=== PATIENT | female | born 1935 | race Caucasian/White ===

== ENCOUNTER 2021-11-04 10:40 | Day surgery (SDC) | payer MEDICARE ==
[2021-10-30 16:26] LABS: BASOPHILS % (AUTO) 0.6 % (0-1); EOSINOPHILS # (AUTO) 0.1 X10'3 (0-0.9); EOSINOPHILS % (AUTO) 0.9 % (0-6); HEMATOCRIT 36.6 % (35.0-45.0); HEMOGLOBIN 12.1 g/dl (12.0-16.0); LYMPHOCYTES # (AUTO) 1.2 X10'3 (1.1-4.8); LYMPHOCYTES % (AUTO) 19.4 % (21-51); MEAN CORPUSCULAR VOLUME 78.7 FL (78-98); MEAN PLATELET VOLUME 7.6 FL (7.4-10.4); MONOCYTES # (AUTO) 0.5 X10'3 (0-0.9); MONOCYTES % (AUTO) 7.2 % (2-12); NEUTROPHILS # (AUTO) 4.6 X10'3 (1.8-7.7); NEUTROPHILS % (AUTO) 71.9 % (42-75); PLATELET COUNT 242 X10'3 (140-440); RED BLOOD COUNT 4.64 X10'6 (4.20-5.60); RED CELL DISTRIBUTION WIDTH 18.4 % (11.5-14.5); WHITE BLOOD COUNT 6.4 X10'3 (4.5-11.0)
[2021-10-30 16:32] LABS: ALBUMIN 3.3 G/DL (3.4-5.0); ANION GAP 1 (8-16); BLOOD UREA NITROGEN 12 MG/DL (7-18); BUN/CREATININE RATIO 14.8 (6.6-38.0); CHLORIDE 108 MMOL/L (99-107); CREATININE 0.81 MG/DL (0.40-0.90); GLUCOSE 92 MG/DL (70-104); POTASSIUM 3.8 MMOL/L (3.5-5.1); SODIUM 140 MMOL/L (135-145); TOTAL CARBON DIOXIDE 30.6 MMOL/L (24-32); eGFR 67 ML/MIN
[2021-10-30 16:35] LABS: APTT 43 SECONDS (22-32)
[2021-11-04] VITALS (11 sets, daily range): BP systolic 12–175; BP diastolic 57–88
[~2021-11-04] VITALS: Ht 152.4 cm; Wt 49.3 kg
[2021-11-04] MEDS ORDERED: diphenhydrAMINE 25mg capsule PO PRN (11:00)
[2021-11-04] MEDS ORDERED: normal saline 1,000 ML IV SCH (11:00)
[2021-11-04] MEDS ORDERED: TRAZ-251 PO (11:42)
[2021-11-04] MEDS ORDERED: WARF3TAB56 PO (11:42)
[2021-11-04] MEDS ORDERED: DIGO125T PO (11:42)
[2021-11-04] MEDS ORDERED: BISO10TA16 PO (11:42)
[2021-11-04] MEDS ORDERED: BUDE10.2 INH (11:42)
[2021-11-04] MEDS ORDERED: ATOR40TA PO (11:42)
[2021-11-04] MEDS ORDERED: TICA90TA PO (11:42)
[2021-11-04] MEDS ORDERED: SPIR25TA5 PO (11:42)
[2021-11-04] MEDS ORDERED: midazolam 1 mg/ML 2ml injection ONE (13:20)
[2021-11-04] MEDS ORDERED: fentaNYL/PF 50MCG/1 ML 2ML syringe ONE (13:20)
[2021-11-04] MEDS ORDERED: iohexol 350MG/ML 100ml bottle IV ONE (13:20)
[2021-11-04] MEDS ORDERED: nitroGLYCERIN-Tridil 50MG/D5W 0 ML IV ONE (13:20)
[2021-11-04] MEDS ORDERED: LIDOcaine 1% (10mg/ml) 2ml vial ONE (13:48)
[2021-11-04] MEDS ORDERED: heparin 1,000unit/ml 10ml vial 10 ML ONE (13:54)
[2021-11-04] MEDS ORDERED: hydrALAZINE 20mg/ml inj. IV ONE ×2 (14:30→14:53)
[2021-11-04] MEDS ORDERED: protamine sulfate 10mg/ml inj. ONE (15:02)
--- NOTE | 2021-11-04 15:30 | NUR ---
Rec'd report from DIANA Yo @ [id number] groin site CDI w/femstop in place-Rt pedal pulse weak w/palpation-strong doppler-palpated Rt groin pulse Addendum: 11/04/21 at 1844 by Zulay Rodriguez RN Amended: Links added.
[2021-11-04] MEDS ORDERED: HYDROcodone/acetaminophen 10/325mg tab PO ONE (16:35)
[2021-11-04] MEDS ORDERED: proCHLORperazine 10 MG/2 ml inj IV PRN (16:50)
[2021-11-04] MEDS ORDERED: ondansetron/PF 4mg/2ml inj IV PRN (16:50)
== END 2021-11-04 19:53 | disposition home or self-care (01) ==
LOC: SSTAY O 10:40
PROVIDERS: ATTEND Internal Medicine Interventional Cardiology
DX: Z01.810 Encounter for preprocedural cardiovascular examination (principal); I25.10 Atherosclerotic heart disease of native coronary artery without angina pectoris; J44.9 Chronic obstructive pulmonary disease, unspecified; I25.2 Old myocardial infarction; I48.91 Unspecified atrial fibrillation; I11.0 Hypertensive heart disease with heart failure; I50.9 Heart failure, unspecified; F17.210 Nicotine dependence, cigarettes, uncomplicated; Z95.0 Presence of cardiac pacemaker; Z79.899 Other long term (current) drug therapy
CPT/HCPCS: 36415; 80048; 85025; 85610; 85730; 93005; 93458; 93571; 99152; 99153; C1751; C1760; C1769; C1894; J0360; J1644; J2250; J2405; J2720; J3010; J3490; J7030; Q0163; Q9967; A4615; A4620; A6258

== ENCOUNTER 2021-11-09 13:35 | Inpatient (IN) | payer MEDICARE ==
[~2021-11-09] VITALS: Ht 152.4 cm; Wt 49.8 kg
[~2021-11-09 13:35] MED LIST: ATOR40TA PO; BISO10TA16 PO; BUDE10.2 INH; DIGO125T PO; SPIR25TA5 PO; TICA90TA PO; TRAZ-251 PO; WARF3TAB56 PO
[2021-11-09 14:18] LABS: BASOPHILS # (AUTO) 0.1 X10'3 (0-0.2); EOSINOPHILS # (AUTO) 0.1 X10'3 (0-0.9); EOSINOPHILS % (AUTO) 1.1 % (0-6); HEMATOCRIT 34.9 % (35.0-45.0); HEMOGLOBIN 11.3 g/dl (12.0-16.0); LYMPHOCYTES # (AUTO) 1.3 X10'3 (1.1-4.8); LYMPHOCYTES % (AUTO) 20.4 % (21-51); MEAN CORPUSCULAR HEMOGLOBIN 26.1 PG (27.0-31.0); MEAN CORPUSCULAR HGB CONC 32.5 g/dL (33.0-36.5); MEAN CORPUSCULAR VOLUME 80.4 FL (78-98); MEAN PLATELET VOLUME 7.6 FL (7.4-10.4); MONOCYTES # (AUTO) 0.5 X10'3 (0-0.9); NEUTROPHILS # (AUTO) 4.4 X10'3 (1.8-7.7); NEUTROPHILS % (AUTO) 69.5 % (42-75); PLATELET COUNT 247 X10'3 (140-440); RED BLOOD COUNT 4.33 X10'6 (4.20-5.60); RED CELL DISTRIBUTION WIDTH 18.6 % (11.5-14.5); WHITE BLOOD COUNT 6.4 X10'3 (4.5-11.0)
[2021-11-09 14:24] LABS: ALANINE AMINOTRANSFERASE 42 U/L (12-78); ALBUMIN 3.4 G/DL (3.4-5.0); ALKALINE PHOSPHATASE 77 IU/L (46-116); ANION GAP 8 (8-16); ASPARTATE AMINO TRANSFERASE 38 U/L (10-37); BILIRUBIN,TOTAL 0.8 MG/DL (0.1-1.0); BLOOD UREA NITROGEN 11 MG/DL (7-18); BUN/CREATININE RATIO 13.9 (6.6-38.0); CALCIUM 9.3 MG/DL (8.5-10.1); CHLORIDE 109 MMOL/L (99-107); CREATININE 0.79 MG/DL (0.40-0.90); GLUCOSE 107 MG/DL (70-104); POTASSIUM 4.1 MMOL/L (3.5-5.1); SODIUM 145 MMOL/L (135-145); TOTAL CARBON DIOXIDE 28.2 MMOL/L (24-32); TOTAL PROTEIN 6.7 G/DL (6.4-8.2); eGFR 69 ML/MIN
[2021-11-09 14:46] LABS: PLATELET ESTIMATE NORMAL
[2021-11-09 14:47] LABS: ANISOCYTOSIS 2+; POIKILOCYTOSIS 1+; POLYCHROMASIA FEW; TARGET CELLS FEW
[2021-11-09] MEDS ORDERED: furosemide 10 MG/1 ML 10ml inj IV ONE (15:20)
--- NOTE | 2021-11-09 15:20 | NUR ---
ATTEMPTED TO INTERROGATE PACEMAKER X2 WITHOUT SUCCESS. PT HAS [place] [employer] PACEM[facility]ER. CALLED [facility] [phone]. STATES THEY WILL HAVE A SKIN LIFTER BACON CALL BACK FOR SUPPORT
--- NOTE | 2021-11-09 15:38 | NUR ---
PACEMAKER SUCCESSFULLY INTERROGATED AND [employer] SUPERVISOR CAMILA STATES THE REPORT WILL BE FAXED OVER SHORTLY. HER DIRECT NUMBER IS [phone]
[2021-11-09] MEDS ORDERED: ondansetron 4mg rapidly disintigrating tab PO PRN (15:45)
[2021-11-09] MEDS ORDERED: ondansetron/PF 4mg/2ml inj IV PRN (15:45)
[2021-11-09] MEDS ORDERED: PERFLUTREN PROTEIN-A MICROSPHR (Optison) 0.22 MG/ML 3ML VIAL IV ONE (15:45)
[2021-11-09] MEDS ORDERED: POTASSIUM BICARB 20meq eff tab 20 MEQ TABLET.EFF PO PRN (15:45)
[2021-11-09] MEDS ORDERED: magnesium Cl slow-release 64mg tablet PO PRN (15:45)
[2021-11-09] MEDS ORDERED: HYDROcodone/acetaminophen 10/325mg tab PO PRN (15:45)
[2021-11-09] MEDS ORDERED: magnesium 2GM in 50ml NS 50 ML IV PRN (15:45)
[2021-11-09] MEDS ORDERED: magnesium 4gm in 100ml NS 100 ML IV PRN (15:45)
[2021-11-09] MEDS ORDERED: magnesium hydroxide 30ml (MOM) UD suspension PO PRN (15:45)
[2021-11-09] MEDS ORDERED: acetaminophen 650mg rectal suppository RC PRN (15:45)
[2021-11-09] MEDS ORDERED: acetaminophen 325mg tablet PO PRN ×2 (15:45)
[2021-11-09] MEDS ORDERED: bisacodyl 10mg suppository rectal RC PRN (15:45)
[2021-11-09] MEDS ORDERED: mag hydrox/Alum hydrox/simeth 30ml oral suspension PO PRN (15:45)
[2021-11-09] MEDS ORDERED: morphine 2 MG/ML inj. syringe IV PRN ×2 (15:45)
[2021-11-09] MEDS ORDERED: metoclopramide 5 mg/ml inj IV PRN (15:45)
[2021-11-09] MEDS ORDERED: potassium CL 10mEq/100ml bag 100 ML IV PRN (15:45)
[2021-11-09] MEDS ORDERED: FURO-150 PO (15:52)
[2021-11-09] MEDS ORDERED: DIGO250T76 PO (15:52)
[2021-11-09 16:20] LABS: APTT 26 SECONDS (22-32)
[2021-11-09 16:45] VITALS: BP 146/95
[2021-11-09] MEDS: K and/or MAG REPLACEMENT MC SCH (19:18)
[2021-11-09] MEDS ORDERED: enoxaparin 60mg/0.6ml syringe SUBCUT SCH (20:00)
[2021-11-09] MEDS: budesonide 0.5mg/2ml UD nebule IH SCH (21:00)
[2021-11-09] MEDS: albuterol 2.5 MG/3 ML nebule NEB SCH (21:00)
[2021-11-09] MEDS ORDERED: warfarin 5mg tablet PO ONE (21:00)
[2021-11-09] MEDS: ticagrelor 90mg tablet PO SCH (21:08)
[2021-11-09] MEDS: furosemide 40mg/4ml inj IV SCH (21:08)
[2021-11-09] MEDS: atorvastatin 20mg tablet PO SCH (21:08)
[2021-11-09] MEDS: traZODone 50mg tablet PO SCH (21:08)
[2021-11-09] MEDS: docusate sod 100mg capsule PO SCH (21:09)
[2021-11-09] MEDS: HYDROcodone/acetaminophen 5mg/325mg tablet PO PRN (21:29)
[2021-11-09 23:13] VITALS: BP 144/79
--- NOTE | 2021-11-09 23:51 | NUR ---
Paged Dr. Keene d/t patient c/o cramping in feet/legs. Orders received.
[2021-11-10] VITALS (8 sets, daily range): BP systolic 96–139; BP diastolic 64–84
[2021-11-10] MEDS: cyclobenzaprine 10mg tablet PO PRN ×3 (00:29→17:54)
[2021-11-10] MEDS: albuterol 2.5 MG/3 ML nebule NEB SCH ×4 (02:59→20:59)
[2021-11-10 06:41] LABS: BASOPHILS # (AUTO) 0.1 X10'3 (0-0.2); EOSINOPHILS # (AUTO) 0.1 X10'3 (0-0.9); EOSINOPHILS % (AUTO) 2.7 % (0-6); HEMATOCRIT 35.6 % (35.0-45.0); HEMOGLOBIN 11.4 g/dl (12.0-16.0); LYMPHOCYTES # (AUTO) 1.6 X10'3 (1.1-4.8); LYMPHOCYTES % (AUTO) 28.9 % (21-51); MEAN CORPUSCULAR HEMOGLOBIN 25.5 PG (27.0-31.0); MEAN CORPUSCULAR HGB CONC 32.1 g/dL (33.0-36.5); MEAN CORPUSCULAR VOLUME 79.4 FL (78-98); MEAN PLATELET VOLUME 7.8 FL (7.4-10.4); MONOCYTES # (AUTO) 0.5 X10'3 (0-0.9); NEUTROPHILS # (AUTO) 3.1 X10'3 (1.8-7.7); NEUTROPHILS % (AUTO) 57.4 % (42-75); PLATELET COUNT 250 X10'3 (140-440); RED BLOOD COUNT 4.48 X10'6 (4.20-5.60); RED CELL DISTRIBUTION WIDTH 19.1 % (11.5-14.5); WHITE BLOOD COUNT 5.4 X10'3 (4.5-11.0)
[2021-11-10 07:15] LABS: ALANINE AMINOTRANSFERASE 36 U/L (12-78); ALBUMIN 3.4 G/DL (3.4-5.0); ALKALINE PHOSPHATASE 71 IU/L (46-116); ANION GAP 12 (8-16); ASPARTATE AMINO TRANSFERASE 30 U/L (10-37); BILIRUBIN,TOTAL 0.9 MG/DL (0.1-1.0); BLOOD UREA NITROGEN 11 MG/DL (7-18); BUN/CREATININE RATIO 13.4 (6.6-38.0); CHLORIDE 103 MMOL/L (99-107); CHOL/HDL RATIO 2.3 (0.00-4.99); CHOLESTEROL 132 MG/DL (0-200); CREATININE 0.82 MG/DL (0.40-0.90); GLUCOSE 91 MG/DL (70-104); HDL CHOLESTEROL 57 MG/DL (35-60); LDL CHOLESTEROL 54 MG/DL (50-100); PHOSPHORUS 3.8 MG/DL (2.3-4.5); POTASSIUM 3.2 MMOL/L (3.5-5.1); SODIUM 144 MMOL/L (135-145); TOTAL CARBON DIOXIDE 29.1 MMOL/L (24-32); TOTAL PROTEIN 6.7 G/DL (6.4-8.2); TRIGLYCERIDES 118 MG/DL (20-135); eGFR 66 ML/MIN
[2021-11-10 07:39] LABS: APTT 31 SECONDS (22-32)
[2021-11-10] MEDS: budesonide 0.5mg/2ml UD nebule IH SCH ×2 (07:59→20:59)
[2021-11-10] MEDS ORDERED: spironolactone 25 MG tablet PO SCH ×2 (08:00→08:51)
[2021-11-10] MEDS ORDERED: bisoprolol 5mg tablet PO SCH (08:00)
[2021-11-10] MEDS: docusate sod 100mg capsule PO SCH ×2 (08:00→20:49)
[2021-11-10] MEDS: K and/or MAG REPLACEMENT MC SCH ×2 (08:00→20:39)
[2021-11-10] MEDS ORDERED: atenolol 50mg tablet PO SCH (08:54)
[2021-11-10] MEDS: atenolol 50mg tablet PO SCH ×2 (09:55→10:15)
[2021-11-10] MEDS: spironolactone 25 MG tablet PO SCH (10:05)
[2021-11-10] MEDS: ticagrelor 90mg tablet PO SCH ×2 (10:07→20:49)
[2021-11-10] MEDS: POTASSIUM BICARB 20meq eff tab 20 MEQ TABLET.EFF PO PRN ×3 (10:07→20:56)
[2021-11-10] MEDS: furosemide 40mg/4ml inj IV SCH ×2 (10:07→20:51)
[2021-11-10] MEDS: digoxin 250mcg (0.25mg) tablet PO SCH (10:08)
[2021-11-10] MEDS: HYDROcodone/acetaminophen 5mg/325mg tablet PO PRN ×2 (10:13→17:54)
--- NOTE | 2021-11-10 10:15 | NUR ---
Sebring would not scan. Charge nurse (Gavi ORTIZ) Notified. She was able to confirm medication would not scan. Med returned, another norco pulled, still would not scan. Administered without scanning, Charge nurse as witness. Pharmacy notified to fix issue.
[2021-11-10] MEDS ORDERED: enoxaparin 50mg/0.5ml (from 3ml vial) syringe SUBCUT SCH (10:41)
[2021-11-10] MEDS: sacubitril/valsartan 24mg-26mg tablet PO SCH ×2 (11:25→20:49)
[2021-11-10] MEDS: predniSONE 20 mg tablet PO SCH (11:26)
--- NOTE | 2021-11-10 15:22 | NUR ---
PAGER ID: [phone] MESSAGE: [id number] Sonja Theodore: Wanting update on her test results. I see there is a report for echo, just not in [facility] spot. Its at top right "R" on echo images file. Glenna [facility] [id number]
--- NOTE | 2021-11-10 17:26 | NUR ---
PAGER ID: [phone] MESSAGE: [id number] Sonja Theodore: Patient wants to leave. Daughter is asking how to get her out of here tonight. They would like to know what the plan is for her. Can you call me? Thanks! Glenna [facility] [id number]
[2021-11-10] MEDS: nicotine 14mg patch - 24hr TD SCH (17:54)
[2021-11-10] MEDS: atorvastatin 20mg tablet PO SCH (20:49)
[2021-11-10] MEDS: traZODone 50mg tablet PO SCH (20:50)
[2021-11-10] MEDS ORDERED: warfarin 3mg tablet PO ONE (21:00)
[2021-11-10] MEDS: enoxaparin 60mg/0.6ml syringe SUBCUT SCH (21:45)
[2021-11-11 02:00] VITALS: BP 93/57
[2021-11-11] MEDS: albuterol 2.5 MG/3 ML nebule NEB SCH ×2 (03:00→07:52)
[2021-11-11] MEDS: HYDROcodone/acetaminophen 5mg/325mg tablet PO PRN (05:43)
[2021-11-11] MEDS: cyclobenzaprine 10mg tablet PO PRN (05:43)
[2021-11-11 06:01] LABS: BASOPHILS % (AUTO) 0.1 % (0-1); EOSINOPHILS % (AUTO) 0 % (0-6); HEMATOCRIT 36.4 % (35.0-45.0); LYMPHOCYTES # (AUTO) 1.2 X10'3 (1.1-4.8); MEAN CORPUSCULAR HEMOGLOBIN 26.3 PG (27.0-31.0); MEAN CORPUSCULAR VOLUME 79.7 FL (78-98); MEAN PLATELET VOLUME 7.8 FL (7.4-10.4); MONOCYTES # (AUTO) 0.6 X10'3 (0-0.9); MONOCYTES % (AUTO) 6.6 % (2-12); NEUTROPHILS # (AUTO) 6.7 X10'3 (1.8-7.7); NEUTROPHILS % (AUTO) 79.3 % (42-75); PLATELET COUNT 281 X10'3 (140-440); RED BLOOD COUNT 4.56 X10'6 (4.20-5.60); RED CELL DISTRIBUTION WIDTH 18.6 % (11.5-14.5); WHITE BLOOD COUNT 8.5 X10'3 (4.5-11.0)
[2021-11-11 06:07] LABS: APTT 31 SECONDS (22-32)
[2021-11-11 06:24] LABS: ALANINE AMINOTRANSFERASE 33 U/L (12-78); ALBUMIN 3.6 G/DL (3.4-5.0); ALKALINE PHOSPHATASE 73 IU/L (46-116); ANION GAP 10 (8-16); ASPARTATE AMINO TRANSFERASE 21 U/L (10-37); BILIRUBIN,TOTAL 0.8 MG/DL (0.1-1.0); BLOOD UREA NITROGEN 18 MG/DL (7-18); BUN/CREATININE RATIO 17.5 (6.6-38.0); CALCIUM 9.2 MG/DL (8.5-10.1); CHLORIDE 99 MMOL/L (99-107); CREATININE 1.03 MG/DL (0.40-0.90); GLUCOSE 114 MG/DL (70-104); MAGNESIUM 2.2 MG/DL (1.5-2.4); POTASSIUM 3.7 MMOL/L (3.5-5.1); SODIUM 140 MMOL/L (135-145); TOTAL CARBON DIOXIDE 30.9 MMOL/L (24-32); TOTAL PROTEIN 7.2 G/DL (6.4-8.2); eGFR 51 ML/MIN
[2021-11-11 06:30] VITALS: BP 123/70
--- NOTE | 2021-11-11 06:30 | NUR ---
Patient in room PCU 3027. I have received report from Benjamin ORTIZ and had the opportunity to ask questions and assume patient care.
[2021-11-11] MEDS: budesonide 0.5mg/2ml UD nebule IH SCH (07:52)
[2021-11-11] MEDS: K and/or MAG REPLACEMENT MC SCH (08:00)
[2021-11-11] MEDS: docusate sod 100mg capsule PO SCH (08:00)
[2021-11-11] MEDS: furosemide 40mg/4ml inj IV SCH (09:02)
[2021-11-11] MEDS: spironolactone 25 MG tablet PO SCH (09:03)
[2021-11-11] MEDS: sacubitril/valsartan 24mg-26mg tablet PO SCH (09:04)
[2021-11-11] MEDS: enoxaparin 60mg/0.6ml syringe SUBCUT SCH (09:04)
[2021-11-11] MEDS: predniSONE 20 mg tablet PO SCH (09:04)
[2021-11-11] MEDS: ticagrelor 90mg tablet PO SCH (09:04)
[2021-11-11] MEDS: digoxin 250mcg (0.25mg) tablet PO SCH (09:05)
[2021-11-11] MEDS: atenolol 50mg tablet PO SCH (09:05)
[2021-11-11] MEDS: nicotine 14mg patch - 24hr TD SCH (09:06)
[2021-11-11] MEDS ORDERED: PRED10TA PO (09:51)
[2021-11-11] MEDS ORDERED: SACU1TAB PO (09:51)
[2021-11-11] MEDS ORDERED: FURO-150 PO (09:51)
[2021-11-11] MEDS ORDERED: NICO-631 TD (09:51)
[2021-11-11 11:00] VITALS: BP 102/65
[2021-11-11] MEDS ORDERED: enoxaparin 50mg/0.5ml (from 3ml vial) syringe SUBCUT SCH (11:48)
--- NOTE | 2021-11-11 14:17 | NUR ---
Patient discharged in stable condition. All discharge instructions reviewed with no further questions. States that she will make her Dr Appointments as her primary care is a walk in clinic and she sees Dr August as well. Patient taken to personal vehicle via wheelchair, with all belongings, including cane.
[2021-11-11] MEDS ORDERED: warfarin 3mg tablet PO ONE (21:00)
== END 2021-11-11 14:10 | disposition home or self-care (01) | DRG 190 ==
LOC: ER 13:36 → ED HOLD 15:46 → PCU 3S 16:21
PROVIDERS: ADMIT Family Medicine; ATTEND Family Medicine
DX: J44.1 Chronic obstructive pulmonary disease with (acute) exacerbation (principal); I50.43 Acute on chronic combined systolic (congestive) and diastolic (congestive) heart failure; Q21.1 Atrial septal defect; I11.0 Hypertensive heart disease with heart failure; E78.5 Hyperlipidemia, unspecified; F17.210 Nicotine dependence, cigarettes, uncomplicated; I48.0 Paroxysmal atrial fibrillation; I25.10 Atherosclerotic heart disease of native coronary artery without angina pectoris; I49.5 Sick sinus syndrome; R25.2 Cramp and spasm; R54 Age-related physical debility; F32.A Depression, unspecified; Z95.0 Presence of cardiac pacemaker; I25.2 Old myocardial infarction; Z79.01 Long term (current) use of anticoagulants; Z79.899 Other long term (current) drug therapy; Z86.16 Personal history of COVID-19; Z86.73 Personal history of transient ischemic attack (TIA), and cerebral infarction without residual deficits; Z90.711 Acquired absence of uterus with remaining cervical stump; Z88.8 Allergy status to other drugs, medicaments and biological substances; Z93.3 Colostomy status; Z71.6 Tobacco abuse counseling; Z95.5 Presence of coronary angioplasty implant and graft; Z79.02 Long term (current) use of antithrombotics/antiplatelets
CPT/HCPCS: 36415; 71045; 73030; 80053; 80061; 80162; 82948; 83735; 83880; 84100; 84443; 84484; 85008; 85025; 85610; 85730; 87081; 93005; 93306; 94640; 94760; 96374; 99285; A6449; G0378; J1650; J1940; J7512

== ENCOUNTER 2021-11-12 02:08 | Emergency (ER) | payer MEDICARE ==
[~2021-11-12] VITALS: Ht 152.4 cm; Wt 49.0 kg
[~2021-11-12 02:08] MED LIST changes: -DIGO125T PO; +DIGO250T76 PO; +FURO-150 PO; +NICO-631 TD; +PRED10TA PO; +SACU1TAB PO
[2021-11-12 03:53] LABS: BASOPHILS % (AUTO) 0.2 % (0-1); EOSINOPHILS % (AUTO) 0 % (0-6); HEMATOCRIT 39.6 % (35.0-45.0); HEMOGLOBIN 12.8 g/dl (12.0-16.0); LYMPHOCYTES # (AUTO) 1.3 X10'3 (1.1-4.8); LYMPHOCYTES % (AUTO) 12.5 % (21-51); MEAN CORPUSCULAR HEMOGLOBIN 25.7 PG (27.0-31.0); MEAN CORPUSCULAR HGB CONC 32.4 g/dL (33.0-36.5); MEAN CORPUSCULAR VOLUME 79.3 FL (78-98); MEAN PLATELET VOLUME 7.8 FL (7.4-10.4); MONOCYTES # (AUTO) 0.7 X10'3 (0-0.9); MONOCYTES % (AUTO) 6.6 % (2-12); NEUTROPHILS # (AUTO) 8.7 X10'3 (1.8-7.7); NEUTROPHILS % (AUTO) 80.7 % (42-75); PLATELET COUNT 328 X10'3 (140-440); RED BLOOD COUNT 4.99 X10'6 (4.20-5.60); RED CELL DISTRIBUTION WIDTH 18.7 % (11.5-14.5); WHITE BLOOD COUNT 10.7 X10'3 (4.5-11.0)
[2021-11-12 04:02] LABS: ALANINE AMINOTRANSFERASE 34 U/L (12-78); ALBUMIN/GLOBULIN RATIO 1.1 (1.1-1.5); ALKALINE PHOSPHATASE 73 IU/L (46-116); ANION GAP 9 (8-16); ASPARTATE AMINO TRANSFERASE 21 U/L (10-37); BILIRUBIN,TOTAL 0.9 MG/DL (0.1-1.0); BLOOD UREA NITROGEN 28 MG/DL (7-18); BUN/CREATININE RATIO 25.9 (6.6-38.0); CALCIUM 9.3 MG/DL (8.5-10.1); CHLORIDE 103 MMOL/L (99-107); CREATININE 1.08 MG/DL (0.40-0.90); GLUCOSE 116 MG/DL (70-104); POTASSIUM 4.1 MMOL/L (3.5-5.1); SODIUM 143 MMOL/L (135-145); TOTAL CARBON DIOXIDE 30.7 MMOL/L (24-32); TOTAL PROTEIN 7.7 G/DL (6.4-8.2); eGFR 48 ML/MIN
--- NOTE | 2021-11-12 04:17 | NUR ---
CALLED [facility], ED TO ED, ACCEPTED @[phone]. CALLED [facility] FOR TRANSPORT
[2021-11-12 04:26] LABS: ANISOCYTOSIS 2+; MICROCYTOSIS 1+; PLATELET ESTIMATE NORMAL
[2021-11-12 04:43] VITALS: BP 118/75
== END 2021-11-12 04:46 | disposition short-term general hospital (02) ==
LOC: ER 02:09
DX: S06.6X9A Traumatic subarachnoid hemorrhage with loss of consciousness of unspecified duration, initial encounter (principal); Z20.822 Contact with and (suspected) exposure to COVID-19; R51.9 Headache, unspecified; I48.91 Unspecified atrial fibrillation; I25.10 Atherosclerotic heart disease of native coronary artery without angina pectoris; J44.9 Chronic obstructive pulmonary disease, unspecified; Z95.0 Presence of cardiac pacemaker; Z98.890 Other specified postprocedural states; Z88.8 Allergy status to other drugs, medicaments and biological substances; Z79.899 Other long term (current) drug therapy; X58.XXXA Exposure to other specified factors, initial encounter; Y93.89 Activity, other specified; Y92.89 Other specified places as the place of occurrence of the external cause; Y99.8 Other external cause status
CPT/HCPCS: 36415; 70450; 80053; 85008; 85025; 85610; 87635; 99285; C9803

== ENCOUNTER 2021-11-28 14:26 | Emergency (ER) | payer MEDICARE ==
[~2021-11-28] VITALS: Ht 152.4 cm; Wt 47.7 kg
[2021-11-28 16:45] LABS: BASOPHILS # (AUTO) 0.1 X10'3 (0-0.2); BASOPHILS % (AUTO) 1.1 % (0-1); EOSINOPHILS # (AUTO) 0.1 X10'3 (0-0.9); EOSINOPHILS % (AUTO) 0.9 % (0-6); HEMATOCRIT 41.4 % (35.0-45.0); HEMOGLOBIN 13.6 g/dl (12.0-16.0); LYMPHOCYTES # (AUTO) 1.9 X10'3 (1.1-4.8); LYMPHOCYTES % (AUTO) 21.8 % (21-51); MEAN CORPUSCULAR HEMOGLOBIN 26.7 PG (27.0-31.0); MEAN CORPUSCULAR HGB CONC 32.9 g/dL (33.0-36.5); MEAN CORPUSCULAR VOLUME 81.3 FL (78-98); MEAN PLATELET VOLUME 7.9 FL (7.4-10.4); MONOCYTES # (AUTO) 0.6 X10'3 (0-0.9); MONOCYTES % (AUTO) 6.7 % (2-12); NEUTROPHILS # (AUTO) 5.9 X10'3 (1.8-7.7); NEUTROPHILS % (AUTO) 69.5 % (42-75); PLATELET COUNT 253 X10'3 (140-440); RED BLOOD COUNT 5.09 X10'6 (4.20-5.60); RED CELL DISTRIBUTION WIDTH 18.3 % (11.5-14.5); WHITE BLOOD COUNT 8.5 X10'3 (4.5-11.0)
[2021-11-28 17:01] LABS: ALANINE AMINOTRANSFERASE 20 U/L (12-78); ALBUMIN 3.8 G/DL (3.4-5.0); ALKALINE PHOSPHATASE 102 IU/L (46-116); ANION GAP 10 (8-16); ASPARTATE AMINO TRANSFERASE 21 U/L (10-37); BILIRUBIN,TOTAL 1.2 MG/DL (0.1-1.0); BLOOD UREA NITROGEN 23 MG/DL (7-18); BUN/CREATININE RATIO 18.7 (6.6-38.0); CALCIUM 9.4 MG/DL (8.5-10.1); CHLORIDE 104 MMOL/L (99-107); CREATININE 1.23 MG/DL (0.40-0.90); GLUCOSE 110 MG/DL (70-104); MAGNESIUM 2.4 MG/DL (1.5-2.4); SODIUM 142 MMOL/L (135-145); TOTAL CARBON DIOXIDE 27.6 MMOL/L (24-32); TOTAL PROTEIN 7.8 G/DL (6.4-8.2); eGFR 42 ML/MIN
[2021-11-28 19:21] VITALS: BP 97/54
== END 2021-11-28 20:16 | disposition left against medical advice (07) ==
LOC: ER 14:27
DX: R03.1 Nonspecific low blood-pressure reading (principal); Z53.21 Procedure and treatment not carried out due to patient leaving prior to being seen by health care provider
CPT/HCPCS: 36415; 71045; 80053; 83605; 83735; 84145; 85025; 87040; 93005

== ENCOUNTER 2022-03-13 08:31 | Outpatient (CLI) | payer MEDICARE ==
[2022-03-11 14:41] LABS: ALBUMIN 3.3 G/DL (3.4-5.0); ANION GAP 10 (8-16); BLOOD UREA NITROGEN 19 MG/DL (7-18); BUN/CREATININE RATIO 22.9 (6.6-38.0); CALCIUM 9.2 MG/DL (8.5-10.1); CHLORIDE 104 MMOL/L (99-107); CREATININE 0.83 MG/DL (0.40-0.90); GLUCOSE 128 MG/DL (70-104); SODIUM 142 MMOL/L (135-145); TOTAL CARBON DIOXIDE 27.7 MMOL/L (24-32); eGFR 65 ML/MIN
[~2022-03-13 08:31] MED LIST changes: +ALBU8.5H17 INH; -DIGO250T76 PO; -FURO-150 PO; +FURO20TA4 PO; +HYDR-3965 PO; -NICO-631 TD; +NITR0.4T48 SL; -PRED10TA PO; -SACU1TAB PO; -SPIR25TA5 PO; -TICA90TA PO; -TRAZ-251 PO; +WARF4TAB69 PO
[2022-03-13] MEDS ORDERED: iohexol 350MG/ML 100ml bottle IV ONE (08:41)
== END 2022-03-13 23:59 | disposition home or self-care (01) ==
LOC: RAD 08:31
PROVIDERS: ATTEND Internal Medicine Cardiovascular Disease
DX: J43.9 Emphysema, unspecified (principal); I48.0 Paroxysmal atrial fibrillation; I51.7 Cardiomegaly; I70.0 Atherosclerosis of aorta; I25.10 Atherosclerotic heart disease of native coronary artery without angina pectoris; Q25.46 Tortuous aortic arch
CPT/HCPCS: 36415; 75574; 80048; J3490; Q9967

== ENCOUNTER 2023-06-01 07:47 | Inpatient (IN) | payer MEDICARE ==
[~2023-06-01] VITALS: Ht 152.4 cm; Wt 49.0 kg
[~2023-06-01 07:47] MED LIST changes: -HYDR-3965 PO
[2023-06-01] MEDS ORDERED: normal saline 1000ml 1,000 ML IV ONE (09:15)
[2023-06-01 09:54] LABS: BASOPHILS % (AUTO) 0.3 % (0-1); EOSINOPHILS % (AUTO) 0.1 % (0-6); HEMATOCRIT 39.5 % (35.0-45.0); LYMPHOCYTES # (AUTO) 0.8 X10'3 (1.1-4.8); LYMPHOCYTES % (AUTO) 6.2 % (21-51); MEAN CORPUSCULAR HEMOGLOBIN 30.5 PG (27.0-31.0); MEAN CORPUSCULAR VOLUME 92.4 FL (78-98); MEAN PLATELET VOLUME 7.9 FL (7.4-10.4); MONOCYTES # (AUTO) 0.8 X10'3 (0-0.9); MONOCYTES % (AUTO) 6.4 % (2-12); NEUTROPHILS # (AUTO) 11.4 X10'3 (1.8-7.7); PLATELET COUNT 316 X10'3 (140-440); RED BLOOD COUNT 4.27 X10'6 (4.20-5.60); RED CELL DISTRIBUTION WIDTH 14.6 % (11.5-14.5); WHITE BLOOD COUNT 13.1 X10'3 (4.5-11.0)
[2023-06-01 09:55] LABS: INR 1.1 INR; PROTHROMBIN TIME 11.3 SECONDS (9.0-12.0)
[2023-06-01 09:58] LABS: ALANINE AMINOTRANSFERASE 26 U/L (12-78); ALBUMIN 1.8 G/DL (3.4-5.0); ALBUMIN/GLOBULIN RATIO 0.4 (1.1-1.5); ALKALINE PHOSPHATASE 94 IU/L (46-116); ANION GAP 6 (8-16); ASPARTATE AMINO TRANSFERASE 22 U/L (10-37); BILIRUBIN,TOTAL 1.4 MG/DL (0.1-1.0); BLOOD UREA NITROGEN 15 MG/DL (7-18); BUN/CREATININE RATIO 17.9 (10.0-20.0); CALCIUM 8.8 MG/DL (8.5-10.1); CHLORIDE 102 MMOL/L (99-107); CREATININE 0.84 MG/DL (0.40-0.90); GLUCOSE 99 MG/DL (70-104); SODIUM 136 MMOL/L (135-145); TOTAL CARBON DIOXIDE 27.6 MMOL/L (24-32); TOTAL PROTEIN 6.8 G/DL (6.4-8.2); eCRCL 35 ML/MIN; eGFR 64 ML/MIN
[2023-06-01 10:00] LABS: APTT 27 SECONDS (22-32)
[2023-06-01] MEDS ORDERED: diltiazem 5mg/ml 5ml inj. IV ONE (10:00)
[2023-06-01 10:05] LABS: PRO BRAIN NATRIURETIC PEPTIDE 1906 PG/ML (0-450)
[2023-06-01] MEDS ORDERED: magnesium Cl slow-release 64mg tablet PO PRN (10:50)
[2023-06-01] MEDS ORDERED: potassium Cl 40MEQ/1/2NS 520ml 520 ML IV PRN (10:50)
[2023-06-01] MEDS ORDERED: acetaminophen 325mg tablet PO PRN ×2 (10:50)
[2023-06-01] MEDS ORDERED: HYDROcodone/acetaminophen 5mg/325mg tablet PO PRN (10:50)
[2023-06-01] MEDS ORDERED: potassium Cl 20 mEq SR tablet PO PRN ×2 (10:50)
[2023-06-01] MEDS ORDERED: digoxin 250mcg/ml 2ml ampule IV ONE (10:50)
[2023-06-01] MEDS ORDERED: ondansetron/PF 4mg/2ml inj IV PRN (10:50)
[2023-06-01] MEDS ORDERED: magnesium 2GM in 50ml NS 50 ML IV PRN (10:50)
[2023-06-01] MEDS ORDERED: morphine 2 MG/ML inj. syringe IV PRN ×2 (10:50)
[2023-06-01] MEDS ORDERED: magnesium 4gm in 100ml NS 100 ML IV PRN (10:50)
[2023-06-01 12:45] VITALS: BP 91/58; PULSE 101; RESP 20; TEMP 97.5; O2SAT 98
[2023-06-01] MEDS: normal saline 1000ml 1,000 ML IV SCH (13:50)
[2023-06-01] MEDS ORDERED: carVEDilol 3.125mg tablet PO SCH (14:00)
[2023-06-01] MEDS: nystatin 500,000 unit/5ML UD oral suspension PO SCH ×2 (14:52→20:03)
[2023-06-01 15:00] VITALS: BP 104/60; RESP 20
[2023-06-01] MEDS ORDERED: CLOP75TA34 PO (16:18)
[2023-06-01] MEDS ORDERED: OXYC-658 PO (16:18)
[2023-06-01] MEDS ORDERED: SPIR25TA5 PO (16:18)
[2023-06-01] MEDS ORDERED: MELA5TAB12 PO (16:18)
[2023-06-01 18:00] VITALS: BP 106/67; PULSE 110; RESP 16; TEMP 97.7
[2023-06-01 20:00] VITALS: RESP 14
[2023-06-01] MEDS: atorvastatin 20mg tablet PO SCH (20:02)
[2023-06-01] MEDS: enoxaparin 40mg/0.4ml syringe SQ SCH (20:03)
[2023-06-01] MEDS ORDERED: temazepam 15mg capsule PO PRN (21:00)
[2023-06-01 22:00] VITALS: BP 94/58; PULSE 93; RESP 14; TEMP 97.4
[2023-06-02 02:00] VITALS: BP 101/55; PULSE 96; RESP 14; TEMP 97.8
[2023-06-02 06:30] VITALS: BP 93/71; PULSE 109; RESP 19; TEMP 98.8; O2SAT 94
[2023-06-02] MEDS: nystatin 500,000 unit/5ML UD oral suspension PO SCH ×3 (08:10→20:05)
[2023-06-02] MEDS: metoprolol succinate 25mg (24-HOUR) SR. Tablet PO SCH (08:10)
[2023-06-02] MEDS: HYDROcodone/acetaminophen 10/325mg tab PO PRN ×2 (08:15→20:00)
[2023-06-02 08:24] LABS: BASOPHILS % (AUTO) 0.4 % (0-1); EOSINOPHILS % (AUTO) 0.3 % (0-6); HEMATOCRIT 38.7 % (35.0-45.0); HEMOGLOBIN 12.9 g/dl (12.0-16.0); LYMPHOCYTES # (AUTO) 0.8 X10'3 (1.1-4.8); MEAN CORPUSCULAR HEMOGLOBIN 30.6 PG (27.0-31.0); MEAN CORPUSCULAR HGB CONC 33.2 g/dL (33.0-36.5); MEAN PLATELET VOLUME 7.8 FL (7.4-10.4); MONOCYTES # (AUTO) 0.6 X10'3 (0-0.9); MONOCYTES % (AUTO) 6.6 % (2-12); NEUTROPHILS % (AUTO) 84.7 % (42-75); PLATELET COUNT 304 X10'3 (140-440); RED BLOOD COUNT 4.21 X10'6 (4.20-5.60); RED CELL DISTRIBUTION WIDTH 14.3 % (11.5-14.5); WHITE BLOOD COUNT 9.4 X10'3 (4.5-11.0)
[2023-06-02 08:29] LABS: ALANINE AMINOTRANSFERASE 22 U/L (12-78); ALBUMIN 1.7 G/DL (3.4-5.0); ALBUMIN/GLOBULIN RATIO 0.3 (1.1-1.5); ALKALINE PHOSPHATASE 94 IU/L (46-116); ANION GAP 9 (8-16); ASPARTATE AMINO TRANSFERASE 27 U/L (10-37); BILIRUBIN,TOTAL 1.3 MG/DL (0.1-1.0); BLOOD UREA NITROGEN 12 MG/DL (7-18); BUN/CREATININE RATIO 16.4 (10.0-20.0); CALCIUM 8.5 MG/DL (8.5-10.1); CHLORIDE 104 MMOL/L (99-107); CREATININE 0.73 MG/DL (0.40-0.90); GLUCOSE 71 MG/DL (70-104); POTASSIUM 4.1 MMOL/L (3.5-5.1); SODIUM 138 MMOL/L (135-145); TOTAL CARBON DIOXIDE 25.1 MMOL/L (24-32); TOTAL PROTEIN 6.8 G/DL (6.4-8.2); eCRCL 40 ML/MIN; eGFR 76 ML/MIN
[2023-06-02 18:00] VITALS: BP 118/66; PULSE 85; RESP 14; TEMP 97; O2SAT 90
[2023-06-02 19:00] VITALS: RESP 14; O2SAT 90
[2023-06-02] MEDS: enoxaparin 40mg/0.4ml syringe SQ SCH (20:00)
[2023-06-02] MEDS: atorvastatin 20mg tablet PO SCH (20:01)
[2023-06-03 06:45] VITALS: BP 101/61; PULSE 91; RESP 20; TEMP 97.4; O2SAT 95
[2023-06-03] MEDS: nystatin 500,000 unit/5ML UD oral suspension PO SCH ×2 (07:46→12:38)
[2023-06-03] MEDS: metoprolol succinate 25mg (24-HOUR) SR. Tablet PO SCH (07:46)
[2023-06-03 08:43] LABS: BASOPHILS # (AUTO) 0.1 X10'3 (0-0.2); BASOPHILS % (AUTO) 0.8 % (0-1); EOSINOPHILS % (AUTO) 0.4 % (0-6); HEMOGLOBIN 12.3 g/dl (12.0-16.0); LYMPHOCYTES # (AUTO) 1.1 X10'3 (1.1-4.8); LYMPHOCYTES % (AUTO) 14.9 % (21-51); MEAN CORPUSCULAR HEMOGLOBIN 30.8 PG (27.0-31.0); MEAN CORPUSCULAR HGB CONC 33.3 g/dL (33.0-36.5); MEAN CORPUSCULAR VOLUME 92.4 FL (78-98); MONOCYTES # (AUTO) 0.8 X10'3 (0-0.9); MONOCYTES % (AUTO) 10.3 % (2-12); NEUTROPHILS # (AUTO) 5.4 X10'3 (1.8-7.7); NEUTROPHILS % (AUTO) 73.6 % (42-75); PLATELET COUNT 302 X10'3 (140-440); RED BLOOD COUNT 4.01 X10'6 (4.20-5.60); RED CELL DISTRIBUTION WIDTH 14.6 % (11.5-14.5); WHITE BLOOD COUNT 7.4 X10'3 (4.5-11.0)
[2023-06-03 08:48] LABS: ALANINE AMINOTRANSFERASE 19 U/L (12-78); ALBUMIN 1.6 G/DL (3.4-5.0); ALBUMIN/GLOBULIN RATIO 0.3 (1.1-1.5); ALKALINE PHOSPHATASE 91 IU/L (46-116); ANION GAP 3 (8-16); ASPARTATE AMINO TRANSFERASE 24 U/L (10-37); BILIRUBIN,TOTAL 0.8 MG/DL (0.1-1.0); BLOOD UREA NITROGEN 12 MG/DL (7-18); BUN/CREATININE RATIO 13.3 (10.0-20.0); CALCIUM 8.7 MG/DL (8.5-10.1); CHLORIDE 106 MMOL/L (99-107); GLUCOSE 90 MG/DL (70-104); SODIUM 140 MMOL/L (135-145); TOTAL CARBON DIOXIDE 30.7 MMOL/L (24-32); TOTAL PROTEIN 6.6 G/DL (6.4-8.2); eCRCL 33 ML/MIN; eGFR 60 ML/MIN
[2023-06-03] MEDS: normal saline 1000ml 1,000 ML IV SCH (10:50)
[2023-06-03] MEDS ORDERED: METO-395 PO (12:24)
[2023-06-03] MEDS ORDERED: PANT-47 PO (12:31)
[2023-06-03] MEDS ORDERED: NYST1000 PO (12:31)
== END 2023-06-03 15:26 | disposition home health service (06) | DRG 543 ==
LOC: ER 07:47 → ED HOLD 10:58 → PCU 3S 12:46
PROVIDERS: ADMIT Internal Medicine; ATTEND Internal Medicine
DX: M48.56XA Collapsed vertebra, not elsewhere classified, lumbar region, initial encounter for fracture (principal); B37.0 Candidal stomatitis; I50.22 Chronic systolic (congestive) heart failure; E44.1 Mild protein-calorie malnutrition; I48.0 Paroxysmal atrial fibrillation; I95.9 Hypotension, unspecified; J43.9 Emphysema, unspecified; E78.5 Hyperlipidemia, unspecified; D72.829 Elevated white blood cell count, unspecified; F43.9 Reaction to severe stress, unspecified; I11.0 Hypertensive heart disease with heart failure; R91.8 Other nonspecific abnormal finding of lung field; I25.10 Atherosclerotic heart disease of native coronary artery without angina pectoris; I25.2 Old myocardial infarction; Z95.0 Presence of cardiac pacemaker; Z95.5 Presence of coronary angioplasty implant and graft; Z88.6 Allergy status to analgesic agent; Z88.8 Allergy status to other drugs, medicaments and biological substances; Z87.891 Personal history of nicotine dependence; R62.7 Adult failure to thrive; Z68.21 Body mass index [BMI] 21.0-21.9, adult
CPT/HCPCS: 36415; 71045; 80053; 83735; 83880; 84145; 84484; 85025; 85610; 85730; 87081; 92508; 92616; 93005; 97110; 97161; 97530; 99285; G0378; J1160; J1650; J2270; J3490; J7030

== ENCOUNTER 2023-07-02 11:28 | Emergency (ER) | payer MEDICARE ==
[~2023-07-02] VITALS: Ht 152.4 cm; Wt 50.0 kg
[~2023-07-02 11:28] MED LIST changes: -BISO10TA16 PO; +CLOP75TA34 PO; -FURO20TA4 PO; +MELA5TAB12 PO; +METO-395 PO; +OXYC-658 PO; +PANT-47 PO; -WARF3TAB56 PO; -WARF4TAB69 PO
[2023-07-02 11:30] VITALS: TEMP 98.2
[2023-07-02 12:30] LABS: BASOPHILS # (AUTO) 0.1 X10'3 (0-0.2); BASOPHILS % (AUTO) 1.7 % (0-1); EOSINOPHILS % (AUTO) 0.6 % (0-6); HEMATOCRIT 38.4 % (35.0-45.0); HEMOGLOBIN 12.4 g/dl (12.0-16.0); LYMPHOCYTES # (AUTO) 1.2 X10'3 (1.1-4.8); LYMPHOCYTES % (AUTO) 25.6 % (21-51); MEAN CORPUSCULAR HEMOGLOBIN 30.2 PG (27.0-31.0); MEAN CORPUSCULAR HGB CONC 32.4 g/dL (33.0-36.5); MEAN CORPUSCULAR VOLUME 93.3 FL (78-98); MEAN PLATELET VOLUME 7.4 FL (7.4-10.4); MONOCYTES # (AUTO) 0.4 X10'3 (0-0.9); MONOCYTES % (AUTO) 7.9 % (2-12); NEUTROPHILS # (AUTO) 2.9 X10'3 (1.8-7.7); NEUTROPHILS % (AUTO) 64.2 % (42-75); PLATELET COUNT 226 X10'3 (140-440); RED BLOOD COUNT 4.11 X10'6 (4.20-5.60); WHITE BLOOD COUNT 4.6 X10'3 (4.5-11.0)
[2023-07-02 12:42] LABS: ALANINE AMINOTRANSFERASE 18 U/L (12-78); ALBUMIN 2.8 G/DL (3.4-5.0); ALBUMIN/GLOBULIN RATIO 0.6 (1.1-1.5); ALKALINE PHOSPHATASE 137 IU/L (46-116); ANION GAP 8 (8-16); ASPARTATE AMINO TRANSFERASE 20 U/L (10-37); BILIRUBIN,TOTAL 1.2 MG/DL (0.1-1.0); BLOOD UREA NITROGEN 9 MG/DL (7-18); BUN/CREATININE RATIO 11.3 (10.0-20.0); CHLORIDE 106 MMOL/L (99-107); GLUCOSE 121 MG/DL (70-104); POTASSIUM 3.8 MMOL/L (3.5-5.1); SODIUM 142 MMOL/L (135-145); TOTAL CARBON DIOXIDE 28.5 MMOL/L (24-32); TOTAL PROTEIN 7.7 G/DL (6.4-8.2); eCRCL 37 ML/MIN; eGFR 68 ML/MIN
[2023-07-02 12:51] LABS: THYROID STIMULATING HORMONE 1.31 ulU/ml (0.34-4.50)
[2023-07-02 13:37] LABS: BILIRUBIN,URINE SMALL (Neg); CLARITY,URINE SLIGHTLY CLOUDY (Clear); GLUCOSE, URINE NEGATIVE (Neg); KETONES,URINE TRACE mg/dl (Neg); LEUKOCYTE ESTERASE ,URINE TRACE (Neg); NITRITES, URINE NEGATIVE (Neg); OCCULT BLOOD,URINE NEGATIVE (Neg); PROTEIN,URINE TRACE mg/dl (Neg)
[2023-07-02 13:46] LABS: COLOR,URINE DARK YELLOW (Yellow); UA COLLECTION TYPE CLN CATCH MIDSTREAM
[2023-07-02 13:59] LABS: BACTERIA,URINE FEW /HPF (Neg); CAL OXALATE CRYSTALS 3+ /HPF (NEGATIVE); HYALINE CASTS 0-3 /LPF (NEGATIVE); MUCUS STRANDS FEW /LPF (Neg); RBC,URINE 0-2 /HPF (0-2); SQUAMOUS EPITHELIAL CELL,UR FEW /LPF (FEW)
[2023-07-02 14:29] VITALS: BP 134/86; PULSE 113; RESP 13; O2SAT 94
[2023-07-02] MEDS ORDERED: GABA-530 PO (14:29)
[2023-07-02] MEDS ORDERED: CEPH-585 PO (14:29)
[2023-07-02] MEDS ORDERED: HYDR-3973 PO (14:29)
== END 2023-07-02 14:32 | disposition home or self-care (01) ==
LOC: ER 11:30
DX: F41.9 Anxiety disorder, unspecified (principal); N39.0 Urinary tract infection, site not specified; F11.23 Opioid dependence with withdrawal; I48.91 Unspecified atrial fibrillation; I25.10 Atherosclerotic heart disease of native coronary artery without angina pectoris; I25.2 Old myocardial infarction; J44.9 Chronic obstructive pulmonary disease, unspecified; Z87.891 Personal history of nicotine dependence; Z95.5 Presence of coronary angioplasty implant and graft; Z95.0 Presence of cardiac pacemaker; Z79.899 Other long term (current) drug therapy; Y92.89 Other specified places as the place of occurrence of the external cause; Z88.6 Allergy status to analgesic agent; Z88.8 Allergy status to other drugs, medicaments and biological substances; Z79.2 Long term (current) use of antibiotics
CPT/HCPCS: 36415; 80053; 81001; 84443; 85025; 87088; 99284; C1758

== ENCOUNTER 2024-06-02 19:38 | Inpatient (IN) | payer MEDICARE ==
[~2024-06-02] VITALS: Ht 152.4 cm; Wt 57.5 kg
[~2024-06-02 19:38] MED LIST changes: +GABA-530 PO
[2024-06-02 21:13] LABS: BASOPHILS % (AUTO) 0.9 % (0-1); EOSINOPHILS # (AUTO) 0.1 X10'3 (0-0.9); EOSINOPHILS % (AUTO) 1.6 % (0-6); HEMATOCRIT 37.7 % (35.0-45.0); HEMOGLOBIN 12.9 g/dl (12.0-16.0); LYMPHOCYTES # (AUTO) 1.2 X10'3 (1.1-4.8); MEAN CORPUSCULAR HEMOGLOBIN 31.9 PG (27.0-31.0); MEAN CORPUSCULAR HGB CONC 34.4 g/dL (33.0-36.5); MEAN CORPUSCULAR VOLUME 92.9 FL (78-98); MEAN PLATELET VOLUME 7.7 FL (7.4-10.4); MONOCYTES # (AUTO) 0.4 X10'3 (0-0.9); MONOCYTES % (AUTO) 8.1 % (2-12); NEUTROPHILS # (AUTO) 3.4 X10'3 (1.8-7.7); NEUTROPHILS % (AUTO) 66.4 % (42-75); PLATELET COUNT 189 X10'3 (140-440); RED BLOOD COUNT 4.05 X10'6 (4.20-5.60); RED CELL DISTRIBUTION WIDTH 14.6 % (11.5-14.5); WHITE BLOOD COUNT 5.2 X10'3 (4.5-11.0)
[2024-06-02 21:28] LABS: ALANINE AMINOTRANSFERASE 26 U/L (12-78); ALBUMIN 3.5 G/DL (3.4-5.0); ALBUMIN/GLOBULIN RATIO 1.1 (1.1-1.5); ALKALINE PHOSPHATASE 98 IU/L (46-116); ANION GAP 10 (8-16); ASPARTATE AMINO TRANSFERASE 29 U/L (10-37); BILIRUBIN,TOTAL 1.4 MG/DL (0.1-1.0); BLOOD UREA NITROGEN 12 MG/DL (7-18); BUN/CREATININE RATIO 16.2 (10.0-20.0); CALCIUM 8.8 MG/DL (8.5-10.1); CHLORIDE 107 MMOL/L (99-107); CREATININE 0.74 MG/DL (0.40-0.90); GLUCOSE 89 MG/DL (70-104); POTASSIUM 3.4 MMOL/L (3.5-5.1); SODIUM 144 MMOL/L (135-145); TOTAL CARBON DIOXIDE 26.6 MMOL/L (24-32); TOTAL PROTEIN 6.7 G/DL (6.4-8.2); eCRCL 39 ML/MIN; eGFR 74 ML/MIN
[2024-06-02 21:37] LABS: PRO BRAIN NATRIURETIC PEPTIDE 3430 PG/ML (0-450)
[2024-06-02] MEDS: nitroGLYCERIN 0.4mg/hour patch TD ONE (22:11)
[2024-06-02] MEDS: potassium Cl 20 mEq SR tablet PO STA (22:52)
[2024-06-02] MEDS: furosemide 10 MG/1 ML 10ml inj IV ONE (22:53)
[2024-06-02] MEDS ORDERED: magnesium sulf-water 2g/50mL 50 ML IV PRN (23:40)
[2024-06-02] MEDS ORDERED: potassium Cl 40MEQ/1/2NS 520ml 520 ML IV PRN (23:40)
[2024-06-02] MEDS ORDERED: ipratropium/albuterol 3ml nebule NEB PRN (23:40)
[2024-06-02] MEDS ORDERED: magnesium sulf-water 4G/100mL 100 ML IV PRN (23:40)
[2024-06-02] MEDS ORDERED: ipratropium/albuterol 3ml nebule NEB SCH ×2 (23:40→23:50)
[2024-06-02] MEDS ORDERED: magnesium Cl slow-release 64mg tablet PO PRN (23:40)
[2024-06-02] MEDS ORDERED: potassium Cl 20 mEq SR tablet PO PRN ×2 (23:40)
[2024-06-02] MEDS ORDERED: magnesium hydroxide 30ml (MOM) UD suspension PO PRN (23:40)
[2024-06-02] MEDS ORDERED: mag hydrox/Alum hydrox/simeth 30ml oral suspension PO PRN (23:40)
[2024-06-02] MEDS ORDERED: ondansetron/PF 4mg/2ml inj IV PRN (23:40)
[2024-06-03] VITALS (16 sets, daily range): BP systolic 116–198; BP diastolic 57–103; PULSE 73–111; RESP 13–24; TEMP 97–98; O2SAT 96–99
[2024-06-03 00:12] LABS: MAGNESIUM 1.9 MG/DL (1.5-2.4); PHOSPHORUS 3.1 MG/DL (2.3-4.5)
[2024-06-03] MEDS: prednisone 10mg tablet PO SCH (00:23)
[2024-06-03 00:43] LABS: HEMOGLOBIN A1C 5.4 % (4.5-6.2)
[2024-06-03] MEDS ORDERED: nitroGLYCERIN 0.4mg SUBLingual tab SL PRN (01:00)
[2024-06-03] MEDS: albuterol 2.5 MG/3 ML nebule NEB SCH (02:29)
[2024-06-03] MEDS: oxyCODONE IR 5mg (immed. release) tablet PO PRN (05:36)
[2024-06-03 06:10] LABS: BASOPHILS % (AUTO) 0.4 % (0-1); EOSINOPHILS % (AUTO) 0.1 % (0-6); HEMATOCRIT 40.3 % (35.0-45.0); HEMOGLOBIN 13.5 g/dl (12.0-16.0); LYMPHOCYTES # (AUTO) 0.4 X10'3 (1.1-4.8); LYMPHOCYTES % (AUTO) 7.1 % (21-51); MEAN CORPUSCULAR HEMOGLOBIN 31.2 PG (27.0-31.0); MEAN CORPUSCULAR HGB CONC 33.4 g/dL (33.0-36.5); MEAN CORPUSCULAR VOLUME 93.5 FL (78-98); MEAN PLATELET VOLUME 7.6 FL (7.4-10.4); MONOCYTES # (AUTO) 0.1 X10'3 (0-0.9); NEUTROPHILS # (AUTO) 5.4 X10'3 (1.8-7.7); NEUTROPHILS % (AUTO) 91.4 % (42-75); PLATELET COUNT 208 X10'3 (140-440); RED BLOOD COUNT 4.31 X10'6 (4.20-5.60); RED CELL DISTRIBUTION WIDTH 14.6 % (11.5-14.5); WHITE BLOOD COUNT 5.9 X10'3 (4.5-11.0)
[2024-06-03 06:44] LABS: ALANINE AMINOTRANSFERASE 27 U/L (12-78); ALBUMIN 3.9 G/DL (3.4-5.0); ALBUMIN/GLOBULIN RATIO 1.1 (1.1-1.5); ALKALINE PHOSPHATASE 116 IU/L (46-116); ANION GAP 8 (8-16); ASPARTATE AMINO TRANSFERASE 30 U/L (10-37); BILIRUBIN,TOTAL 1.7 MG/DL (0.1-1.0); BLOOD UREA NITROGEN 10 MG/DL (7-18); BUN/CREATININE RATIO 12.7 (10.0-20.0); CALCIUM 9.1 MG/DL (8.5-10.1); CHLORIDE 104 MMOL/L (99-107); CHOL/HDL RATIO 2.1 (0.00-4.99); CHOLESTEROL 170 MG/DL (0-200); CREATININE 0.79 MG/DL (0.40-0.90); GLUCOSE 111 MG/DL (70-104); HDL CHOLESTEROL 82 MG/DL (35-60); LDL CHOLESTEROL 76 MG/DL (50-100); POTASSIUM 3.8 MMOL/L (3.5-5.1); SODIUM 143 MMOL/L (135-145); TOTAL CARBON DIOXIDE 30.8 MMOL/L (24-32); TOTAL PROTEIN 7.4 G/DL (6.4-8.2); TRIGLYCERIDES 72 MG/DL (20-135); eCRCL 37 ML/MIN; eGFR 69 ML/MIN
[2024-06-03] MEDS ORDERED: budesonide 0.5mg/2ml UD nebule IH SCH (08:00)
[2024-06-03] MEDS: K and/or MAG REPLACEMENT MC SCH (08:00)
[2024-06-03] MEDS: budesonide 0.5mg/2ml UD nebule IH SCH (08:10)
[2024-06-03] MEDS ORDERED: ipratropium/albuterol 3ml nebule NEB SCH (09:00)
[2024-06-03] MEDS: furosemide 20 MG/2 ML vial IV SCH (09:16)
[2024-06-03] MEDS: gabapentin 100mg capsule PO SCH (09:49)
[2024-06-03] MEDS: enoxaparin 40mg/0.4ml syringe SQ SCH (09:49)
[2024-06-03] MEDS: clopidogrel 75mg tablet PO SCH (09:50)
[2024-06-03] MEDS: pantoprazole 40mg Tablet.DR PO SCH (09:50)
[2024-06-03] MEDS: nicotine 7mg patch - 24hr TD SCH (10:03)
[2024-06-03] MEDS: acetaminophen 325mg tablet PO PRN (11:08)
[2024-06-03] MEDS: metoprolol succinate 25mg (24-HOUR) SR. Tablet PO SCH (12:01)
[2024-06-03] MEDS: Melatonin 3mg tablet PO ONE (20:34)
[2024-06-03] MEDS: atorvastatin 20mg tablet PO SCH (20:37)
[2024-06-04 02:00] VITALS: BP 124/82; PULSE 106; RESP 16; TEMP 97.1; O2SAT 97
[2024-06-04 06:18] LABS: BASOPHILS % (AUTO) 0.1 % (0-1); EOSINOPHILS % (AUTO) 0.1 % (0-6); HEMOGLOBIN 12.5 g/dl (12.0-16.0); LYMPHOCYTES # (AUTO) 1.4 X10'3 (1.1-4.8); LYMPHOCYTES % (AUTO) 18.4 % (21-51); MEAN CORPUSCULAR HEMOGLOBIN 31.4 PG (27.0-31.0); MEAN CORPUSCULAR HGB CONC 33.8 g/dL (33.0-36.5); MEAN CORPUSCULAR VOLUME 92.8 FL (78-98); MEAN PLATELET VOLUME 7.6 FL (7.4-10.4); MONOCYTES # (AUTO) 0.7 X10'3 (0-0.9); MONOCYTES % (AUTO) 9.7 % (2-12); NEUTROPHILS # (AUTO) 5.4 X10'3 (1.8-7.7); NEUTROPHILS % (AUTO) 71.7 % (42-75); PLATELET COUNT 178 X10'3 (140-440); RED BLOOD COUNT 3.99 X10'6 (4.20-5.60); RED CELL DISTRIBUTION WIDTH 14.4 % (11.5-14.5); WHITE BLOOD COUNT 7.6 X10'3 (4.5-11.0)
[2024-06-04 06:42] LABS: ALANINE AMINOTRANSFERASE 26 U/L (12-78); ALBUMIN 3.2 G/DL (3.4-5.0); ALBUMIN/GLOBULIN RATIO 0.9 (1.1-1.5); ALKALINE PHOSPHATASE 83 IU/L (46-116); ANION GAP 5 (8-16); ASPARTATE AMINO TRANSFERASE 21 U/L (10-37); BLOOD UREA NITROGEN 15 MG/DL (7-18); BUN/CREATININE RATIO 18.8 (10.0-20.0); CALCIUM 9.4 MG/DL (8.5-10.1); CHLORIDE 103 MMOL/L (99-107); GLUCOSE 90 MG/DL (70-104); POTASSIUM 4.1 MMOL/L (3.5-5.1); SODIUM 141 MMOL/L (135-145); TOTAL CARBON DIOXIDE 32.8 MMOL/L (24-32); TOTAL PROTEIN 6.6 G/DL (6.4-8.2); eCRCL 36 ML/MIN; eGFR 68 ML/MIN
[2024-06-04 07:00] VITALS: BP 121/76; PULSE 101; RESP 14; TEMP 97.4; O2SAT 93
[2024-06-04 09:09] VITALS: PULSE 75; RESP 20; O2SAT 95
[2024-06-04 09:18] VITALS: PULSE 54; RESP 20
[2024-06-04 11:00] VITALS: BP 104/70; PULSE 102; RESP 15; TEMP 97.4; O2SAT 96
[2024-06-04] MEDS ORDERED: PRED10TA23 PO (11:33)
[2024-06-04] MEDS ORDERED: NICO-630 TD (11:33)
== END 2024-06-04 14:48 | disposition home health service (06) | DRG 189 ==
LOC: ER 19:39 → ED HOLD 23:22 → EDBEDREQ 06-03 01:02 → PCU 3S 06-03 02:15
PROVIDERS: ADMIT Internal Medicine; ATTEND Internal Medicine
DX: J96.21 Acute and chronic respiratory failure with hypoxia (principal); I50.23 Acute on chronic systolic (congestive) heart failure; J44.1 Chronic obstructive pulmonary disease with (acute) exacerbation; M48.56XA Collapsed vertebra, not elsewhere classified, lumbar region, initial encounter for fracture; I11.0 Hypertensive heart disease with heart failure; J43.9 Emphysema, unspecified; F17.210 Nicotine dependence, cigarettes, uncomplicated; I25.10 Atherosclerotic heart disease of native coronary artery without angina pectoris; E78.5 Hyperlipidemia, unspecified; I48.0 Paroxysmal atrial fibrillation; M54.50 Low back pain, unspecified; I25.2 Old myocardial infarction; Z88.6 Allergy status to analgesic agent; Z88.8 Allergy status to other drugs, medicaments and biological substances; Z95.5 Presence of coronary angioplasty implant and graft; Z95.0 Presence of cardiac pacemaker; Z86.73 Personal history of transient ischemic attack (TIA), and cerebral infarction without residual deficits
CPT/HCPCS: 36415; 71045; 71250; 80053; 80061; 83036; 83605; 83735; 83880; 84100; 84145; 84484; 85025; 87081; 93005; 93306; 94640; 94760; 97116; 97161; 97530; A4615; G0378; J1650; J1940; J7512

== ENCOUNTER 2024-07-18 18:22 | Inpatient (IN) | payer MEDICARE ==
[~2024-07-18] VITALS: Ht 154.9 cm; Wt 53.1 kg
[~2024-07-18 18:22] MED LIST changes: +NICO-630 TD
[2024-07-18 19:15] LABS: BASOPHILS % (AUTO) 0.8 % (0-1); EOSINOPHILS % (AUTO) 0.5 % (0-6); HEMATOCRIT 42.3 % (35.0-45.0); HEMOGLOBIN 13.8 g/dl (12.0-16.0); LYMPHOCYTES # (AUTO) 1.2 X10'3 (1.1-4.8); LYMPHOCYTES % (AUTO) 21.8 % (21-51); MEAN CORPUSCULAR HEMOGLOBIN 30.3 PG (27.0-31.0); MEAN CORPUSCULAR HGB CONC 32.8 g/dL (33.0-36.5); MEAN CORPUSCULAR VOLUME 92.6 FL (78-98); MEAN PLATELET VOLUME 7.9 FL (7.4-10.4); MONOCYTES # (AUTO) 0.4 X10'3 (0-0.9); MONOCYTES % (AUTO) 6.5 % (2-12); NEUTROPHILS # (AUTO) 3.9 X10'3 (1.8-7.7); NEUTROPHILS % (AUTO) 70.4 % (42-75); PLATELET COUNT 218 X10'3 (140-440); RED BLOOD COUNT 4.56 X10'6 (4.20-5.60); RED CELL DISTRIBUTION WIDTH 14.6 % (11.5-14.5); WHITE BLOOD COUNT 5.6 X10'3 (4.5-11.0)
[2024-07-18 19:27] LABS: ALANINE AMINOTRANSFERASE 24 U/L (12-78); ALBUMIN 3.7 G/DL (3.4-5.0); ALBUMIN/GLOBULIN RATIO 1.1 (1.1-1.5); ALKALINE PHOSPHATASE 105 IU/L (46-116); ANION GAP 7 (8-16); ASPARTATE AMINO TRANSFERASE 23 U/L (10-37); BILIRUBIN,TOTAL 1.6 MG/DL (0.1-1.0); BLOOD UREA NITROGEN 16 MG/DL (7-18); BUN/CREATININE RATIO 19.8 (10.0-20.0); CALCIUM 9.3 MG/DL (8.5-10.1); CHLORIDE 108 MMOL/L (99-107); CREATININE 0.81 MG/DL (0.40-0.90); GLUCOSE 90 MG/DL (70-104); POTASSIUM 4.1 MMOL/L (3.5-5.1); SODIUM 145 MMOL/L (135-145); TOTAL CARBON DIOXIDE 30.1 MMOL/L (24-32); TOTAL PROTEIN 7.1 G/DL (6.4-8.2); eCRCL 38 ML/MIN; eGFR 67 ML/MIN
[2024-07-18 19:35] LABS: PRO BRAIN NATRIURETIC PEPTIDE 4932 PG/ML (0-450)
[2024-07-18] MEDS ORDERED: magnesium hydroxide 30ml (MOM) UD suspension PO PRN (21:05)
[2024-07-18] MEDS ORDERED: potassium Cl 40MEQ/1/2NS 520ml 520 ML IV PRN (21:05)
[2024-07-18] MEDS ORDERED: magnesium sulf-water 4G/100mL 100 ML IV PRN (21:05)
[2024-07-18] MEDS ORDERED: ondansetron/PF 4mg/2ml inj IV PRN (21:05)
[2024-07-18] MEDS ORDERED: potassium Cl 20 mEq SR tablet PO PRN ×2 (21:05)
[2024-07-18] MEDS ORDERED: magnesium sulf-water 2g/50mL 50 ML IV PRN (21:05)
[2024-07-18] MEDS ORDERED: magnesium Cl slow-release 64mg tablet PO PRN (21:05)
[2024-07-18 21:34] LABS: D-DIMER 0.93 MG/L FEU (0-0.50)
[2024-07-18] MEDS: aspirin 325mg tablet PO ONE (22:12)
[2024-07-18] MEDS: enoxaparin 60mg/0.6ml syringe SUBCUT ONE (22:16)
[2024-07-18] MEDS ORDERED: iohexol 350MG/ML 100ml bottle IV ONE (22:17)
[2024-07-18 22:24] LABS: THYROID STIMULATING HORMONE 2.11 ulU/ml (0.34-4.50)
[2024-07-18] MEDS ORDERED: ipratropium/albuterol 3ml nebule NEB PRN (22:35)
[2024-07-18] MEDS: metoprolol succinate 25mg (24-HOUR) SR. Tablet PO SCH (23:28)
[2024-07-19] MEDS: acetaminophen 325mg tablet PO PRN (01:30)
[2024-07-19] MEDS ORDERED: CLOP-32 PO (02:34)
[2024-07-19] MEDS ORDERED: GABA-530 PO (02:35)
[2024-07-19] MEDS: gabapentin 100mg capsule PO ONE (03:01)
[2024-07-19] MEDS: Melatonin 3mg tablet PO SCH (03:01)
[2024-07-19 03:57] LABS: BASOPHILS % (AUTO) 0.6 % (0-1); EOSINOPHILS % (AUTO) 0.6 % (0-6); HEMATOCRIT 38.8 % (35.0-45.0); HEMOGLOBIN 13.1 g/dl (12.0-16.0); LYMPHOCYTES # (AUTO) 0.9 X10'3 (1.1-4.8); LYMPHOCYTES % (AUTO) 16.5 % (21-51); MEAN CORPUSCULAR HEMOGLOBIN 31.3 PG (27.0-31.0); MEAN CORPUSCULAR HGB CONC 33.7 g/dL (33.0-36.5); MEAN CORPUSCULAR VOLUME 92.8 FL (78-98); MEAN PLATELET VOLUME 7.5 FL (7.4-10.4); MONOCYTES # (AUTO) 0.3 X10'3 (0-0.9); MONOCYTES % (AUTO) 6.2 % (2-12); NEUTROPHILS # (AUTO) 4.2 X10'3 (1.8-7.7); NEUTROPHILS % (AUTO) 76.1 % (42-75); PLATELET COUNT 186 X10'3 (140-440); RED BLOOD COUNT 4.18 X10'6 (4.20-5.60); WHITE BLOOD COUNT 5.5 X10'3 (4.5-11.0)
[2024-07-19 04:15] LABS: ALANINE AMINOTRANSFERASE 22 U/L (12-78); ALBUMIN 3.2 G/DL (3.4-5.0); ALBUMIN/GLOBULIN RATIO 1.1 (1.1-1.5); ALKALINE PHOSPHATASE 93 IU/L (46-116); ANION GAP 7 (8-16); ASPARTATE AMINO TRANSFERASE 25 U/L (10-37); BILIRUBIN,TOTAL 1.5 MG/DL (0.1-1.0); BLOOD UREA NITROGEN 14 MG/DL (7-18); BUN/CREATININE RATIO 16.9 (10.0-20.0); CALCIUM 8.7 MG/DL (8.5-10.1); CHLORIDE 108 MMOL/L (99-107); CHOL/HDL RATIO 2.2 (0.00-4.99); CHOLESTEROL 149 MG/DL (0-200); CREATININE 0.83 MG/DL (0.40-0.90); GLUCOSE 93 MG/DL (70-104); HDL CHOLESTEROL 67 MG/DL (35-60); LDL CHOLESTEROL 74 MG/DL (50-100); MAGNESIUM 1.9 MG/DL (1.5-2.4); POTASSIUM 3.8 MMOL/L (3.5-5.1); SODIUM 142 MMOL/L (135-145); TOTAL CARBON DIOXIDE 26.9 MMOL/L (24-32); TOTAL PROTEIN 6.2 G/DL (6.4-8.2); TRIGLYCERIDES 57 MG/DL (20-135); eCRCL 37 ML/MIN; eGFR 65 ML/MIN
[2024-07-19] MEDS ORDERED: furosemide 20 MG/2 ML vial IV SCH (08:00)
[2024-07-19] MEDS: K and/or MAG REPLACEMENT MC SCH (08:00)
[2024-07-19] MEDS: docusate sod 100mg capsule PO SCH (08:21)
[2024-07-19] MEDS: enoxaparin 50mg/0.5ml (from 3ml vial) syringe SUBCUT SCH (08:22)
[2024-07-19] MEDS: gabapentin 100mg capsule PO SCH ×2 (08:22→16:38)
[2024-07-19] MEDS: furosemide 40mg/4ml inj IV SCH (08:23)
[2024-07-19] MEDS: normal saline 500ml IV soln 500 ML IV ONE (11:16)
[2024-07-19] MEDS: morphine 2 MG/ML inj. syringe IV ONE (16:44)
[2024-07-19] MEDS: furosemide 40mg/4ml inj IV ONE (18:02)
[2024-07-19] MEDS ORDERED: non-formulary drug (Melatonin 1 TAB) PO SCH (21:00)
[2024-07-19 23:36] VITALS: BP 136/91; PULSE 103; RESP 14; TEMP 97.9; O2SAT 99
[2024-07-20] VITALS (11 sets, daily range): BP systolic 99–139; BP diastolic 70–103; PULSE 59–140; RESP 15–16; TEMP 97.9–98.7; O2SAT 94–99
[2024-07-20 05:02] LABS: BASOPHILS # (AUTO) 0.1 X10'3 (0-0.2); BASOPHILS % (AUTO) 1.1 % (0-1); HEMATOCRIT 40.8 % (35.0-45.0); HEMOGLOBIN 13.6 g/dl (12.0-16.0); LYMPHOCYTES # (AUTO) 1.1 X10'3 (1.1-4.8); LYMPHOCYTES % (AUTO) 22.5 % (21-51); MEAN CORPUSCULAR HGB CONC 33.3 g/dL (33.0-36.5); MEAN CORPUSCULAR VOLUME 93.1 FL (78-98); MEAN PLATELET VOLUME 7.4 FL (7.4-10.4); MONOCYTES # (AUTO) 0.4 X10'3 (0-0.9); MONOCYTES % (AUTO) 7.8 % (2-12); NEUTROPHILS # (AUTO) 3.4 X10'3 (1.8-7.7); NEUTROPHILS % (AUTO) 67.6 % (42-75); PLATELET COUNT 181 X10'3 (140-440); RED BLOOD COUNT 4.39 X10'6 (4.20-5.60); RED CELL DISTRIBUTION WIDTH 14.6 % (11.5-14.5)
[2024-07-20 05:24] LABS: ALANINE AMINOTRANSFERASE 25 U/L (12-78); ALBUMIN 3.2 G/DL (3.4-5.0); ALKALINE PHOSPHATASE 92 IU/L (46-116); ANION GAP 3 (8-16); ASPARTATE AMINO TRANSFERASE 21 U/L (10-37); BILIRUBIN,TOTAL 1.3 MG/DL (0.1-1.0); BLOOD UREA NITROGEN 17 MG/DL (7-18); BUN/CREATININE RATIO 21.5 (10.0-20.0); CALCIUM 8.9 MG/DL (8.5-10.1); CHLORIDE 105 MMOL/L (99-107); CREATININE 0.79 MG/DL (0.40-0.90); GLUCOSE 85 MG/DL (70-104); MAGNESIUM 1.8 MG/DL (1.5-2.4); SODIUM 142 MMOL/L (135-145); TOTAL PROTEIN 6.5 G/DL (6.4-8.2); eCRCL 39 ML/MIN; eGFR 69 ML/MIN
[2024-07-20] MEDS ORDERED: VERA120C3 PO (07:05)
[2024-07-20] MEDS ORDERED: clopidogrel 75mg tablet PO SCH (08:00)
[2024-07-20] MEDS: losartan 25mg tablet PO SCH (08:07)
[2024-07-20] MEDS: EMPAGLIFLOZIN 10 MG TABLET PO SCH (08:07)
[2024-07-20] MEDS: spironolactone 25 MG tablet PO SCH (08:08)
[2024-07-20] MEDS: oxyCODONE IR 5mg (immed. release) tablet PO PRN (11:06)
[2024-07-20] MEDS: metoprolol tartrate 1mg/ml inj IV SCH (19:25)
[2024-07-20] MEDS: morphine 2 MG/ML inj. syringe IV PRN (20:10)
[2024-07-20] MEDS: mag hydrox/Alum hydrox/simeth 30ml oral suspension PO PRN (20:12)
[2024-07-20] MEDS: nitroGLYCERIN 0.4mg SUBLingual tab SL PRN (20:14)
[2024-07-20 20:33] LABS: ALBUMIN 3.4 G/DL (3.4-5.0); ANION GAP 3 (8-16); BLOOD UREA NITROGEN 20 MG/DL (7-18); BUN/CREATININE RATIO 20.4 (10.0-20.0); CALCIUM 9.5 MG/DL (8.5-10.1); CHLORIDE 102 MMOL/L (99-107); CREATININE 0.98 MG/DL (0.40-0.90); GLUCOSE 108 MG/DL (70-104); POTASSIUM 4.6 MMOL/L (3.5-5.1); SODIUM 139 MMOL/L (135-145); TOTAL CARBON DIOXIDE 33.8 MMOL/L (24-32); eCRCL 31 ML/MIN; eGFR 54 ML/MIN
[2024-07-21 01:34] VITALS: BP 131/86; PULSE 83; RESP 16; TEMP 97.8; O2SAT 96
[2024-07-21 06:00] VITALS: BP 107/66; PULSE 99; RESP 16; TEMP 98.6; O2SAT 94
[2024-07-21 06:04] LABS: BASOPHILS % (AUTO) 0.8 % (0-1); EOSINOPHILS # (AUTO) 0.1 X10'3 (0-0.9); EOSINOPHILS % (AUTO) 1.1 % (0-6); HEMOGLOBIN 12.8 g/dl (12.0-16.0); LYMPHOCYTES # (AUTO) 1.2 X10'3 (1.1-4.8); LYMPHOCYTES % (AUTO) 24.8 % (21-51); MEAN CORPUSCULAR HEMOGLOBIN 30.5 PG (27.0-31.0); MEAN CORPUSCULAR HGB CONC 32.8 g/dL (33.0-36.5); MEAN CORPUSCULAR VOLUME 92.8 FL (78-98); MEAN PLATELET VOLUME 7.5 FL (7.4-10.4); MONOCYTES # (AUTO) 0.5 X10'3 (0-0.9); MONOCYTES % (AUTO) 9.3 % (2-12); NEUTROPHILS # (AUTO) 3.1 X10'3 (1.8-7.7); PLATELET COUNT 175 X10'3 (140-440); RED BLOOD COUNT 4.21 X10'6 (4.20-5.60); RED CELL DISTRIBUTION WIDTH 14.7 % (11.5-14.5); WHITE BLOOD COUNT 4.9 X10'3 (4.5-11.0)
[2024-07-21 06:25] LABS: ALANINE AMINOTRANSFERASE 20 U/L (12-78); ALBUMIN 3.1 G/DL (3.4-5.0); ALKALINE PHOSPHATASE 86 IU/L (46-116); ANION GAP 4 (8-16); ASPARTATE AMINO TRANSFERASE 20 U/L (10-37); BLOOD UREA NITROGEN 16 MG/DL (7-18); BUN/CREATININE RATIO 20.3 (10.0-20.0); CALCIUM 8.7 MG/DL (8.5-10.1); CHLORIDE 105 MMOL/L (99-107); CREATININE 0.79 MG/DL (0.40-0.90); GLUCOSE 81 MG/DL (70-104); POTASSIUM 4.2 MMOL/L (3.5-5.1); SODIUM 141 MMOL/L (135-145); TOTAL CARBON DIOXIDE 32.5 MMOL/L (24-32); TOTAL PROTEIN 6.1 G/DL (6.4-8.2); eCRCL 39 ML/MIN; eGFR 69 ML/MIN
[2024-07-21] MEDS: verapamil SR 120mg (sust. release) tab PO SCH (08:28)
[2024-07-21] MEDS: metoprolol succinate 25mg (24-HOUR) SR. Tablet PO SCH (08:28)
[2024-07-21 10:00] VITALS: BP 101/81; PULSE 101; RESP 23; TEMP 97.4; O2SAT 93
[2024-07-21 11:51] VITALS: BP_SYST 114; BP_SYST 116; BP_SYST 122; BP_DIAS 82; BP_DIAS 83; PULSE 112; PULSE 113; PULSE 114
[2024-07-21] MEDS ORDERED: EMPA10TA PO (16:09)
[2024-07-21] MEDS ORDERED: METO-395 PO (16:09)
[2024-07-21] MEDS ORDERED: LOSA25TA41 PO (16:09)
[2024-07-21] MEDS ORDERED: SPIR25TA5 PO (20:58)
== END 2024-07-21 17:10 | disposition home health service (06) | DRG 291 ==
LOC: ER 18:22 → ED HOLD 21:10 → ORTHO 4S 07-19 23:50
PROVIDERS: ADMIT Internal Medicine Pulmonary Disease; ATTEND Internal Medicine
PROC: B32T1ZZ Computerized Tomography (CT Scan) of Left Pulmonary Artery using Low Osmolar Contrast (ICD-10-PCS; principal; 2024-07-18)
PROC: B3201ZZ Computerized Tomography (CT Scan) of Thoracic Aorta using Low Osmolar Contrast (ICD-10-PCS; 2024-07-18)
PROC: B32S1ZZ Computerized Tomography (CT Scan) of Right Pulmonary Artery using Low Osmolar Contrast (ICD-10-PCS; 2024-07-18)
DX: I11.0 Hypertensive heart disease with heart failure (principal); I50.23 Acute on chronic systolic (congestive) heart failure; J96.21 Acute and chronic respiratory failure with hypoxia; E46 Unspecified protein-calorie malnutrition; I95.1 Orthostatic hypotension; F41.9 Anxiety disorder, unspecified; J43.9 Emphysema, unspecified; F17.210 Nicotine dependence, cigarettes, uncomplicated; I25.118 Atherosclerotic heart disease of native coronary artery with other forms of angina pectoris; I48.0 Paroxysmal atrial fibrillation; G90.89 Other disorders of autonomic nervous system; I25.2 Old myocardial infarction; Z88.8 Allergy status to other drugs, medicaments and biological substances; Z88.6 Allergy status to analgesic agent; Z79.01 Long term (current) use of anticoagulants; Z79.899 Other long term (current) drug therapy; Z95.0 Presence of cardiac pacemaker; Z98.61 Coronary angioplasty status; Z90.710 Acquired absence of both cervix and uterus; Z68.22 Body mass index [BMI] 22.0-22.9, adult
CPT/HCPCS: 36415; 70450; 71045; 71275; 80048; 80053; 80061; 82607; 82948; 83735; 83880; 84443; 84484; 85025; 85379; 87081; 93005; 93308; 94760; 94799; 96372; 97116; 97161; 97530; 99285; A4615; G0378; J1650; J1940; J2270; J3490; J7030; J7040; Q9967